=== PATIENT | female | born 1950 | race Caucasian/White ===

== ENCOUNTER 2019-09-25 18:28 | Inpatient (IN) ==
[2019-09-25] MEDS ORDERED: BISACODYL 5 MG TABLET PO PRN (20:52)
[2019-09-25] MEDS ORDERED: diphenhydrAMINE CAP 25 MG CAPSULE PO PRN (20:52)
[2019-09-25] MEDS ORDERED: LEVALBUTEROL 1.25 MG/3 ML NEB RESP TX PRN (20:52)
[2019-09-25] MEDS ORDERED: MORPHINE 4 MG/1 ML VIAL IV PRN (20:52)
[2019-09-25] MEDS ORDERED: ACETAMINOPHEN 325 MG TABLET PO PRN (20:52)
[2019-09-25] MEDS ORDERED: GLUCAGON 1 MG VIAL IM PRN (20:52)
[2019-09-25] MEDS ORDERED: ONDANSETRON 4 MG/2 ML VIAL IV PRN (20:52)
[2019-09-25] MEDS ORDERED: guaiFENesin/DM ER 600-30 MG TABLET PO PRN (20:52)
[2019-09-25] MEDS ORDERED: DEXTROSE 10% 250 ML BAG IV PRN (20:52)
[2019-09-25 21:40] LABS: Basophils # 0.1 10*3/uL (0.0-0.2); Basophils % 0.2 % (0.0-0.8); Hematocrit 40.4 VOL% (35.7-47.0); Hemoglobin 13.2 GM/DL (12.0-16.0); Immature Granulocytes % 0.7 %; Lymphocytes % 3.4 % (21.3-54.2); Mean Corpuscular HGB Conc 32.7 GM/DL (32-36); Mean Corpuscular Volume 90.6 FL (87-102); Mean Platelet Volume 11.6 FL (9.6-12.0); Monocytes % 3.1 % (1.7-12.7); Neutrophils % 92.6 % (38.7-73.9); Platelet Count 166 T/CUMM (130-400); Red Blood Count 4.46 MC/CUMM (3.8-5.5); Red Cell Distribution Width 14.6 % (9.3-17.3); White Blood Count 28.4 T/CUMM (4-12)
[2019-09-25] MEDS: ENOXAPARIN 40 MG/0.4 ML SYRINGE SUBCUT SCH (21:43)
[2019-09-25] MEDS: NICOTINE 21 MG/24 HR PATCH TRANSDERM PRN (21:44)
[2019-09-25] MEDS: FUROSEMIDE 40 MG/4 ML VIAL IV SCH (21:44)
[2019-09-25 21:48] LABS: ABG Base Excess -2.8 MMOL/L (-2.5-2.5); ABG Oxygen Saturation 92.5 % (95-100); ABG PCO2 35.6 MM HG (35-48); ABG PO2 64.4 MM HG (80-95); ABG TCO2 18.6 MMOL/L (23-27); Allen Test Positive
[2019-09-25 22:12] LABS: Albumin 3.1 G/DL (3.4-5.0); Bilirubin,Total 0.8 MG/DL (0.2-1.0); Calcium 8.2 MG/DL (8.5-10.1); Risk Ratio 3.87; Total Protein 6.7 G/DL (6.4-8.3); VLDL CHOLESTEROL 37.6 MG/DL
[2019-09-25 22:13] LABS: Band Neutrophils 1 % (0-10); Lymphocytes 1 % (20-55); Platelet Estimate Normal; Segmented Neutrophils 97 % (50-85); Total Cells Counted 100
[2019-09-25] MEDS ORDERED: SODIUM CHLORIDE 0.9% 1,000 ML IV ONE (22:44)
[2019-09-25] MEDS ORDERED: VANCOMYCIN INJ 1,000 MG in SODIUM CHLORIDE 0.9% 250 ML IV SCH (23:00)
[2019-09-25] MEDS: INSULIN GLARGINE 100 UNIT/ML SUBCUT SCH (23:36)
[2019-09-26] MEDS: PIPERACILLIN/TAZOBACTAM 3,375 MG in SODIUM CHLORIDE 0.9% 100 ML IV SCH ×4 (00:45→22:08)
[2019-09-26] MEDS: INSULIN REGULAR 100 UNIT/ML SUBCUT SCH ×4 (00:45→18:09)
[2019-09-26] MEDS: ALBUTEROL/IPRATROPIUM 3 ML NEB RESP TX SCH ×4 (00:53→20:16)
[2019-09-26 02:28] LABS: Apearance,Urine CLEAR (Clear); Bilirubin,Urine Negative (Negative); Blood, Urine Small mg/dL (Negative); Glucose,Urine (UA) >=500 mg/dL (Negative); Ketones,Urine Negative (Negative); Nitrite,Urine Negative (Negative); Protein,Urine Negative; RBC,Urine <1 /HPF (0-4); Urine Color Colorless (Yellow); Urine Specific Gravity 1.008 (1.001-1.035); Urine Urobilinogen < 2.0 EU/DL (0.2-1.0); WBC,Urine 1 /HPF (0-6)
[2019-09-26] MEDS: FUROSEMIDE 40 MG/4 ML VIAL IV SCH ×2 (09:26→15:36)
[2019-09-26] MEDS: PREGABALIN 75 MG CAPSULE PO SCH ×3 (09:26→21:11)
[2019-09-26] MEDS: PANTOPRAZOLE 40 MG TABLET PO SCH (09:26)
[2019-09-26] MEDS ORDERED: AZITHROMYCIN INJ 500 MG in SODIUM CHLORIDE 0.9% 250 ML IV SCH (17:00)
[2019-09-26] MEDS ORDERED: ZALEPLON 5 MG CAPSULE PO PRN (19:27)
[2019-09-26] MEDS: INSULIN GLARGINE 100 UNIT/ML SUBCUT SCH (21:12)
[2019-09-26] MEDS: ENOXAPARIN 40 MG/0.4 ML SYRINGE SUBCUT SCH (21:12)
[2019-09-26] MEDS: NICOTINE 21 MG/24 HR PATCH TRANSDERM PRN (22:05)
[2019-09-27] MEDS: INSULIN REGULAR 100 UNIT/ML SUBCUT SCH ×3 (00:19→14:03)
[2019-09-27] MEDS: ALBUTEROL/IPRATROPIUM 3 ML NEB RESP TX SCH ×2 (00:45→05:37)
[2019-09-27 06:32] LABS: Calcium 8.5 MG/DL (8.5-10.1); Osmolality,Calculated 287.1 MOS/KG (273-304)
[2019-09-27] MEDS: PIPERACILLIN/TAZOBACTAM 3,375 MG in SODIUM CHLORIDE 0.9% 100 ML IV SCH (06:45)
[2019-09-27 08:04] LABS: Basophils # 0.1 10*3/uL (0.0-0.2); Basophils % 0.3 % (0.0-0.8); Eosinophils % 0.1 % (0.00-10.9); Hematocrit 41.3 VOL% (35.7-47.0); Hemoglobin 13.6 GM/DL (12.0-16.0); Immature Granulocytes % 0.5 %; Immature Granulocytes Absolute 0.11 #; Lymphocytes # 4.9 10*3/uL (1.4-4.0); Mean Corpuscular HGB Conc 32.9 GM/DL (32-36); Mean Platelet Volume 11.1 FL (9.6-12.0); Neutrophils % 70.1 % (38.7-73.9); Platelet Count 221 T/CUMM (130-400); Red Blood Count 4.54 MC/CUMM (3.8-5.5); Red Cell Distribution Width 14.6 % (9.3-17.3); White Blood Count 20.6 T/CUMM (4-12)
[2019-09-27 08:33] LABS: Hypochromasia 1+; Lymphocytes 28 % (20-55); Ovalocytes Slight; Platelet Estimate Adequate; Segmented Neutrophils 70 % (50-85); Total Cells Counted 100
[2019-09-27] MEDS: FUROSEMIDE 40 MG/4 ML VIAL IV SCH (08:57)
[2019-09-27] MEDS: POTASSIUM CHLORIDE 20 MEQ TABLET PO SCH ×2 (08:57→11:35)
[2019-09-27] MEDS: PREGABALIN 75 MG CAPSULE PO SCH (08:57)
[2019-09-27] MEDS: PANTOPRAZOLE 40 MG TABLET PO SCH (08:58)
[2019-09-27 12:59] VITALS: BP 104/70
== END 2019-09-27 13:25 | disposition home or self-care (01) | DRG 291 ==
LOC: N.CC 20:04 → SUATTDRO 20:04 → N.5E 09-26 15:57
PROVIDERS: ADMIT Internal Medicine; ATTEND Family Medicine